=== PATIENT | female | born 1990 | race Caucasian/White ===

== ENCOUNTER 2018-03-16 11:06 | Day surgery (SDC) | payer BC ==
[~2018-03-16 11:06] MED LIST: CLINDAMYCIN 600 MG/D5W (PMX) 50 ML IVPB; ROCURONIUM 50 MG INJ; SOD CHLORIDE 0.9% 1,000 ML IV
[2018-03-16] MEDS ORDERED: MIDAZOLAM 1 MG/ML 2 ML INJ (14:21)
[2018-03-16] MEDS: BUPIVACAINE 0.5%/EPI (SDV) 30 ML INJ (14:33)
[2018-03-16] MEDS ORDERED: PROPOFOL 20 ML (15:21)
[2018-03-16] MEDS ORDERED: LIDOCAINE 2% (SDV) 5 ML INJ (15:21)
[2018-03-16] MEDS ORDERED: CEFAZOLIN 1 GM INJ (15:21)
[2018-03-16] MEDS ORDERED: ONDANSETRON 4 MG INJ (15:21)
[2018-03-16] MEDS ORDERED: ONDANSETRON 4 MG INJ IV ×2 (15:30→16:00)
[2018-03-16] MEDS ORDERED: KETOROLAC 30 MG INJ IV (15:30)
[2018-03-16] MEDS ORDERED: IBUPROFEN 600 MG TAB PO (15:30)
[2018-03-16] MEDS ORDERED: HYDROCODONE/APAP (5/325) TAB PO (15:30)
[2018-03-16] MEDS ORDERED: FENTAnyl 50 MCG/ML VIAL IV (16:00)
[2018-03-16] MEDS ORDERED: METOCLOPRAMIDE 10 MG INJ IV (16:00)
[2018-03-16] MEDS ORDERED: DIPHENHYDRAMINE 50 MG INJ IV (16:00)
[2018-03-16] MEDS: HYDROmorphONE 1 MG/5 ML IV SYRINGE IV ×3 (16:04→16:25)
[2018-03-16] MEDS: MEPERIDINE 25 MG INJ IV (16:28)
[2018-03-16] MEDS: HYDROCODONE/APAP (5/325) TAB PO (17:31)
== END 2018-03-16 18:22 | disposition home or self-care (01) ==
LOC: SDS 11:06
DX: K42.9 Umbilical hernia without obstruction or gangrene (principal); K43.9 Ventral hernia without obstruction or gangrene
CPT/HCPCS: 49585; 84703; 88302